=== PATIENT | female | born 1955 | race Caucasian/White ===

== ENCOUNTER 2018-02-03 11:05 | Day surgery (SDC) | payer OTHER ==
[~2018-02-03 11:05] MED LIST: Lactated Ringers 1,000 ML IV SCH; Midazolam 1 MG/ML 2 ML SDV ONE; Propofol 200 MG/20 ML SDV ONE; Sodium Chloride 0.9% 10 ML Syringe FLUSH PRN; Sodium Chloride 0.9% 2.5 ML Syringe FLUSH PRN
--- NOTE | 2018-02-03 12:13 | PCM.PREANE ---
Preanesthetic Assessment - Anesthesia/Transfusion/Family Hx Anesthesia History: Prior Anesthesia Without Reaction Other Type of Anesthesia Reaction Comment: with Laparoscopic 'slow to awaken and Sick', Daughter x1 hard to get sleep Family History of Anesthesia Reaction: No Transfusion History: No Prior Transfusion(s) - Review of Systems General: No Symptoms Pulmonary: No Symptoms Cardiovascular: No Symptoms Neurological: No Symptoms Other: Reports: None - Physical Assessment NPO Status Date: 02/02/18 Height: 1.63 m Weight: 75.75 kg ASA Class: 2 Mental Status: Alert & Oriented x3 Airway Class: Mallampati = 1 Dentition: Reports: Normal Dentition ROM/Head Extension: Full Lungs: Clear to Auscultation, Normal Respiratory Effort Cardiovascular: Regular Rate, Regular Rhythm - Allergies Allergies/Adverse Reactions: Allergies Allergy/AdvReac Type Severity Reaction Status Date / Time acetaminophen Allergy Dizziness Verified 01/21/18 11:06 [From Darvocet-N 100] hydrocodone Allergy Difficulty Verified 01/21/18 11:06 Swallowing meperidine HCl [From Demerol] Allergy Dizziness Verified 01/21/18 11:06 propoxyphene napsylate Allergy Dizziness Verified 01/21/18 11:06 [From Darvocet-N 100] Pain med after Hysterectomy Allergy Hallucinati Uncoded 11/29/14 14:15 ons Sulfa eye drops Allergy Redness Uncoded 01/21/18 11:06 - Anesthesia Plan Pre-Op Medication Ordered: None - Acknowledgements Anesthesia Type Planned: MAC Pt an Appropriate Candidate for the Planned Anesthesia: Yes Alternatives and Risks of Anesthesia Discussed w Pt/Guardian: Yes Pt/Guardian Understands and Agrees with Anesthesia Plan: Yes Additional Comments: PMH: psoriatic arthritis, htn, hld, lumbar scoliosis (denies ankalosing spondylosis- as listed in her problem list) PLAN: mac PreAnesthesia Questionnaire HEENT History: Reports: Other (See Below) Other HEENT History: wears glasses, Cardiovascular History: Reports: High Cholesterol, Hypertension Respiratory History: Reports: Asthma, Sleep Apnea Other Respiratory History: minimal asthma symptoms for many years, does not use CPAP Gastrointestinal History: Reports: Colon Polyp, GERD, Hiatal Hernia, Other (See Below) Other Gastrointestinal History: hx: Colon polyps ANDROID UI DEVELOPER History: Reports: Endometriosis, Musculoskeletal History: Reports: Back Pain, Chronic, Fracture, Fibromyalgia, Neck Pain, Chronic Other Musculoskeletal History: Hx: fracturing both ankles, Left ORIF, Levoscoliosis, Lumbosacral Radiculopathy L5-S1, 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,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 Moderate degree by MRI, Spondylitis, ankylosing Neurological History: Reports: Other (See Below) Other Neuro History: Sciatica, Pain to Left Hip Endocrine/Metabolic History: Reports: Other (See Below) Other Endocrine/Metabolic History: states has hypoglycemia Dermatologic History: Reports: Eczema Other Dermatologic History: Psoriasis - Past Surgical History Other Musculoskeletal Surgeries/Procedures:: ORIF Left ankle - SUBSTANCE USE Smoking Status *Q: Never Smoker Recreational Drug Use History: No - HOME MEDS Home Medications: Home Meds Aspirin [Halfprin] 81 mg PO BRK 11/29/14 [History] Citalopram Hydrobromide [Citalopram HBr] 30 mg PO DAILY 11/29/14 [History] Clobetasol [Clobetasol Propionate 0.05% Cream] 1 applic TOP ASDIRECTED PRN 11/29 [History] Gabapentin [Neurontin] 300 mg PO BEDTIME 11/29/14 [History] Gabapentin [Neurontin] 600 mg PO QAM 11/29/14 [History] Lansoprazole 30 mg PO DAILY 11/29/14 [History] Losartan [Cozaar] 100 mg PO BEDTIME 11/29/14 [History] Meloxicam 1 tab PO DAILY PRN 11/29/14 [History] atorvaSTATin [Lipitor] 40 mg PO BEDTIME 11/29/14 [History] Acetaminophen with Codeine [Tylenol with Codeine #3 Tablet] 1 - 2 tab PO TID PRN 01/21/18 [History] Albuterol [Ventolin HFA] 1 - 2 puff INH Q4H PRN 01/21/18 [History] Cyclobenzaprine HCl 140 mg PO TID PRN 01/21/18 [History] Montelukast Sodium [Singulair] 10 mg PO DAILY 01/21/18 [History] Sucralfate 1 gm PO QID 01/21/18 [History] Ubidecarenone [Co Q-10] 100 mg PO DAILY 01/21/18 [History] - CURRENT (IN HOUSE) MEDS Current Meds: Current Medications Lactated Ringer's (Ringers, Lactated) 1,000 mls @ 125 mls/hr IV ASDIRECTED [place] Sodium Chloride (Saline Flush) 10 ml FLUSH ASDIRECTED PRN PRN Reason: Keep Vein Open Sodium Chloride (Saline Flush) 2.5 ml FLUSH ASDIRECTED PRN PRN Reason: Keep Vein Open Discontinued Medications Midazolam HCl (Versed 1 Mg/Ml) Confirm Administered Dose 2 mg .ROUTE .STK-MED ONE Stop: 02/03/18 07:29 Propofol (Diprivan 20 Ml) Confirm Administered Dose 200 mg .ROUTE .STK-MED ONE Stop: 02/03/18 07:29
[2018-02-03] MEDS ORDERED: Propofol 200 MG/20 ML SDV ONE (13:46)
--- NOTE | 2018-02-03 13:55 | PCM.OPNOTE ---
- General Post-Op/Procedure Note Date of Surgery/Procedure: 02/03/18 Operative Procedure(s): EGD Findings: Small hiatal hernia, mild distal esophageal dilation, no evidence of esophagitis. Multiple hyperplastic polyps in the body and fundus of stomach Pre Op Diagnosis: Hiatal hernia, GERD Post-Op Diagnosis: Hiatal hernia, GERD, hyperplastic gastric polyps Primary Surgeon: Gracia Zazueta Condition: Good
--- NOTE | 2018-02-03 14:20 | PCM48HPAN ---
Post Anesthesia Note - EVALUATION WITHIN 48HRS OF ANESTHETIC Vital Signs in Normal Range: Yes Patient Participated in Evaluation: Yes Respiratory Function Stable: Yes Airway Patent: Yes Cardiovascular Function Stable: Yes Hydration Status Stable: Yes Pain Control Satisfactory: Yes Nausea and Vomiting Control Satisfactory: Yes Mental Status Recovered: Yes Resp Rate: 13 - COMMENTS/OBSERVATIONS Free Text/Narrative:: laryngospasm in endoscopy, resolved and well now.
[2018-02-03 14:33] VITALS: BP 121/64
--- NOTE | 2018-02-03 14:51 | PCM48HPAN ---
Post Anesthesia Note - EVALUATION WITHIN 48HRS OF ANESTHETIC Vital Signs in Normal Range: Yes Patient Participated in Evaluation: Yes Respiratory Function Stable: Yes Airway Patent: Yes Cardiovascular Function Stable: Yes Hydration Status Stable: Yes Pain Control Satisfactory: Yes Nausea and Vomiting Control Satisfactory: Yes Mental Status Recovered: Yes Resp Rate: 13
--- NOTE | 2018-02-03 15:06 | OR ---
SURGEON: FORREST PURVIS MD DATE OF PROCEDURE: 02/03/2018 PREOPERATIVE DIAGNOSIS: Hiatal hernia with reflux. POSTOPERATIVE DIAGNOSES: Hiatal hernia with reflux, hyperplastic gastric polyps. PROCEDURE PERFORMED: Diagnostic esophagogastroduodenoscopy. ANESTHESIA: MAC. INSTRUMENT USED: Olympus endoscope. EXTENT OF EXAM: To the second portion of duodenum. PREPARATION: Good. LIMITATIONS: None. INDICATION FOR EXAMINATION: The patient is a 62-year-old female with worsening reflux. She has had reflux for many years, has had previous EGDs. During this, she was noted to have hyperplastic gastric polyps. She is starting to have some dysphagia. An esophagram was done prior to the procedure, which showed mild presbyesophagus as well as tiny hiatal hernia associated with moderate reflux. I explained the procedure, expected perioperative course, and risks including bleeding, infection, or damage to surrounding structures including perforation. The patient verbalized understanding and wishes to proceed. PROCEDURE IN DETAIL: The patient was brought to the endoscopy suite and placed in a beach chair position. A time-out was completed verifying the patient's name, age, date of , allergies, and procedure to be performed. Monitored anesthesia care was induced and a bite block was placed in the patient's mouth. After adequate sedation was achieved, a well lubricated endoscope was placed in the patient's mouth and advanced under direct visualization to the second portion of the duodenum. This appeared normal and a photograph was taken. The scope was then fully withdrawn while examining the color, texture, anatomy, and integrity mucosa of the upper GI tract. The duodenum appeared normal with no evidence of pathology. The scope was brought into the stomach and a photograph was taken of the GE junction as well as the pylorus. The pylorus appeared normal. The patient was noted to have a very small hiatal hernia. On inspection of the gastric mucosa, the patient had numerous polyps within the fundus and body of the stomach. Some of these were large polyp in the body of the stomach, was biopsied, and sent to pathology, labeled as gastric polyp. Biopsies were taken of the gastric antrum, body, and fundus and sent for histologic review and H. pylori testing. The scope was then brought into the distal esophagus where again I noted the hiatal hernia. A photograph was taken. The scope was brought into the distal esophagus and I could see of the esophagus was mildly dilated; however, there was no evidence of any reflux or any esophagitis. As I was withdrawing my scope, the patient started to have laryngospasm. The scope was quickly removed and the procedure terminated. The patient required airway support for short time after the case, but her oxygen saturations and respiratory effort quickly recovered. She was taken to the PACU in stable condition. ENDOSCOPIC DIAGNOSES: 1. Hiatal hernia with gastric reflux. 2. Hyperplastic gastric polyp. RECOMMENDATIONS: Follow up in clinic in 2 weeks. MALATHI WEBSTER /[id number]
== END 2018-02-03 15:08 | disposition home or self-care (01) ==
LOC: MW.SDS 11:05
PROVIDERS: ATTEND Surgery
DX: K21.9 Gastro-esophageal reflux disease without esophagitis (principal); K31.7 Polyp of stomach and duodenum; K22.8 Other specified diseases of esophagus; K44.9 Diaphragmatic hernia without obstruction or gangrene; J45.909 Unspecified asthma, uncomplicated; H35.039 Hypertensive retinopathy, unspecified eye; I10 Essential (primary) hypertension; E78.00 Pure hypercholesterolemia, unspecified; Z88.5 Allergy status to narcotic agent; Z88.2 Allergy status to sulfonamides; Z79.899 Other long term (current) drug therapy; Z79.82 Long term (current) use of aspirin
CPT/HCPCS: 43239; J2250; J2704; J7120; 00731; 88305; 88312

== ENCOUNTER 2022-04-15 06:40 | Day surgery (SDC) | payer MEDICARE ==
[~2022-04-15 06:40] MED LIST changes: -Midazolam 1 MG/ML 2 ML SDV ONE; -Propofol 200 MG/20 ML SDV ONE; -Sodium Chloride 0.9% 10 ML Syringe FLUSH PRN; -Sodium Chloride 0.9% 2.5 ML Syringe FLUSH PRN
[2022-04-15] MEDS ORDERED: Bupivacaine 0.25%/EPINEPHrine 1:200,000 10 ML SDV ONE (07:13)
[2022-04-15] MEDS ORDERED: Ropivacaine 0.5% 5 MG/ML 30 ML SDV ONE (07:21)
[2022-04-15] MEDS ORDERED: Famotidine 20 MG/2 ML SDV ONE (07:21)
[2022-04-15] MEDS ORDERED: Propofol 200 MG/20 ML SDV ONE (07:22)
[2022-04-15] MEDS ORDERED: fentaNYL 250 MCG/5 ML SDV ONE (07:22)
[2022-04-15] MEDS ORDERED: Morphine 2 MG/ML SYRINGE IVPUSH PRN (07:35)
[2022-04-15] MEDS ORDERED: fentaNYL 50 MCG/ML SDV IVPUSH PRN (07:35)
[2022-04-15] MEDS ORDERED: HYDROmorphone 1 MG/ML Syringe IVPUSH PRN (07:35)
[2022-04-15] MEDS ORDERED: Ondansetron 4 MG/2 ML SDV IVPUSH PRN (07:35)
[2022-04-15] MEDS ORDERED: Albuterol 0.083% 2.5 MG/3 ML Neb Soln NEB PRN (07:35)
[2022-04-15] MEDS ORDERED: Metoclopramide 10 MG/2 ML SDV IVPUSH PRN (07:35)
[2022-04-15] MEDS ORDERED: Naloxone 0.4 MG/ML SDV IVPUSH PRN (07:35)
[2022-04-15] MEDS ORDERED: ceFAZolin 2 GM in Premix Bag 1 BAG IV SCH (08:00)
[2022-04-15] MEDS ORDERED: Dexamethasone 4 MG/ML 5 ML MDV ONE (08:17)
[2022-04-15] MEDS ORDERED: ePHEDrine 50 MG/ML SDV ONE (08:17)
[2022-04-15] MEDS ORDERED: Ondansetron 4 MG/2 ML SDV ONE (08:17)
[2022-04-15 10:42] VITALS: BP 148/71; PULSE 105
== END 2022-04-15 10:25 | disposition home or self-care (01) ==
LOC: MW.SDS 06:40
PROVIDERS: ATTEND Orthopaedic Surgery
DX: M23.41 Loose body in knee, right knee (principal); M25.861 Other specified joint disorders, right knee; J45.909 Unspecified asthma, uncomplicated; I10 Essential (primary) hypertension; E78.00 Pure hypercholesterolemia, unspecified; K21.9 Gastro-esophageal reflux disease without esophagitis; M19.90 Unspecified osteoarthritis, unspecified site; F41.9 Anxiety disorder, unspecified; Z98.890 Other specified postprocedural states; Z90.710 Acquired absence of both cervix and uterus; Z88.5 Allergy status to narcotic agent; Z88.2 Allergy status to sulfonamides; Z79.899 Other long term (current) drug therapy; Z79.82 Long term (current) use of aspirin
CPT/HCPCS: 29874; J0131; J1100; J2405; J2704; J2795; J3010; J3490; J7120

== ENCOUNTER 2024-01-06 06:33 | Day surgery (SDC) | payer MEDICARE ==
[~2024-01-06 06:33] MED LIST changes: -Lactated Ringers 1,000 ML IV SCH; +Sodium Chloride 0.9% 10 ML Syringe FLUSH PRN; +Sodium Chloride 0.9% 2.5 ML Syringe FLUSH PRN; +Sodium Chloride 0.9% 20 ML SDV IV PRN
[2024-01-06] MEDS: Lactated Ringers 1,000 ML IV SCH (07:02)
[2024-01-06] MEDS ORDERED: propofoL 50 ML ONE (07:23)
[2024-01-06] MEDS ORDERED: Lidocaine 2% 5 ML SDV ONE (07:23)
[2024-01-06] MEDS ORDERED: Glycopyrrolate 0.2 MG/ML SDV ONE (08:16)
[2024-01-06 09:19] VITALS: BP 146/70; PULSE 84
== END 2024-01-06 08:40 | disposition home or self-care (01) ==
LOC: MW.SDS 06:33
PROVIDERS: ATTEND Surgery
DX: Z12.11 Encounter for screening for malignant neoplasm of colon (principal); K31.7 Polyp of stomach and duodenum; K29.70 Gastritis, unspecified, without bleeding; Z86.010 Personal history of colon polyps; K21.9 Gastro-esophageal reflux disease without esophagitis; K44.9 Diaphragmatic hernia without obstruction or gangrene; I10 Essential (primary) hypertension; E78.00 Pure hypercholesterolemia, unspecified; E66.9 Obesity, unspecified; G47.33 Obstructive sleep apnea (adult) (pediatric); Z79.82 Long term (current) use of aspirin; Z79.899 Other long term (current) drug therapy; Z88.2 Allergy status to sulfonamides; Z88.5 Allergy status to narcotic agent
CPT/HCPCS: 43239; 43251; 88305; G0105; J1596; J2704; J7120; 00813; J3490